=== PATIENT | male | born 1995 | race Caucasian/White ===

== ENCOUNTER 2017-02-20 00:11 | Emergency (ER) | payer OTHER ==
[~2017-02-20] VITALS: Ht 172.7 cm; Wt 72.6 kg
[2017-02-20 00:11] VITALS: BP_SYST 143
[2017-02-20 00:53] VITALS: BP_SYST 139
== END 2017-02-20 00:53 ==
LOC: SED 00:11
DX: Z04.1 Encounter for examination and observation following transport accident (principal)
CPT/HCPCS: 99283